=== PATIENT | female | born 1985 | race African-American/Black ===

== ENCOUNTER 2022-11-09 17:15 | Emergency (ER) | payer MEDICAID ==
[2022-11-09] MEDS ORDERED: Penicillin V Potassium 250 MG TAB ONE (18:24)
== END 2022-11-09 18:30 | disposition home or self-care (01) ==
LOC: NAV ERS 17:15
DX: K04.4 Acute apical periodontitis of pulpal origin (principal)
CPT/HCPCS: 99283